=== PATIENT | female | born 1970 | race Caucasian/White ===

== ENCOUNTER 2017-02-09 20:34 | Emergency (ER) | payer OTHER, MEDICARE ==
[~2017-02-09 20:34] MED LIST: ALAVERT10 M1 PO; ALAVERT10 MG PO; CYMBALTA 20MG20 MG PO; DEPAKOTE 250MG250 MG PO; EPI-PEN1 MG/ML MR; FAMOTIDINE40 MG PO; FIORICET 325 MG1 TA1 PO; IMITREX100 MG PO; KEPPRA1000 MG PO; KEPPRA250 MG PO; LEXAPRO10 MG PO; LEXAPRO20 MG PO; LYRICA50 MG PO; NORCO 325 MG-7.1 TA1 PO; PREDNISONE10 M1 PO; SINGULAIR10 MG PO
[2017-02-09] MEDS ORDERED: DEPAKOTE DR500 MG PO (20:48)
[2017-02-09 21:26] VITALS: BP 154/89
== END 2017-02-09 21:26 | disposition home or self-care (01) ==
LOC: ED 20:34
DX: S51.811A Laceration without foreign body of right forearm, initial encounter (principal); W26.0XXA Contact with knife, initial encounter; Y92.000 Kitchen of unspecified non-institutional (private) residence as the place of occurrence of the external cause; Z23 Encounter for immunization; Z88.6 Allergy status to analgesic agent; Z88.1 Allergy status to other antibiotic agents
CPT/HCPCS: 90715; A4550; A4649

== ENCOUNTER → 2019-10-06 | Outpatient (CLI) | payer OTHER, MEDICARE ==
[~2019-10-06] MED LIST changes: +DEPAKOTE DR500 MG PO
[2019-10-06 10:38] LABS: TOTAL PROTEIN 6.8 g/dL (6.4-8.3)
[2019-10-06 10:40] LABS: TOTAL BILIRUBIN 0.2 mg/dL (0.2-1.2)
== END ==
LOC: LAB 10:11
PROVIDERS: Family Medicine
DX: Z13.1 Encounter for screening for diabetes mellitus (principal); Z13.6 Encounter for screening for cardiovascular disorders

== ENCOUNTER 2020-03-21 11:55 | Emergency (ER) | payer OTHER, MEDICARE ==
[2020-03-21] MEDS ORDERED: LEXAPRO 10MG10 MG (12:17)
[2020-03-21 12:49] LABS: EOS # 0.1 (0.04-0.40); EOS % 1.5 % (1.0-5.0); HEMATOCRIT 38.5 % (37.0-47.0); HEMOGLOBIN 11.7 g/dL (12.5-16.0); LYMPH# 2.6 (1.50-4.00); MEAN CELL VOLUME 94 fl (78-100); MEAN CORPUSCULAR HEMOGLOBIN 29 pg (27-31); MEAN CORPUSCULAR HGB CONC 30 g/dL (33-37); MEAN PLATELET VOLUME 9.6 fl (7.4-10.4); MONO # 0.4 (0.20-0.80); PLATELET COUNT 313 K/mm3 (130-400); RED BLOOD COUNT 4.08 M/mm3 (4.10-5.30); RED CELL DISTRIBUTION WIDTH 15.1 % (11.5-14.5); WHITE BLOOD COUNT 8.2 K/mm3 (4.8-10.8)
[2020-03-21 12:59] LABS: POTASSIUM 4.2 mmol/L (3.5-5.1)
[2020-03-21 13:00] LABS: CALCIUM 8.8 mg/dL (8.3-10.5)
[2020-03-21 13:01] LABS: TOTAL PROTEIN 6.5 g/dL (6.4-8.3)
[2020-03-21 13:03] LABS: TOTAL BILIRUBIN 0.2 mg/dL (0.2-1.2)
[2020-03-21] MEDS ORDERED: BACLOFEN5 MG PO (15:19)
[2020-03-21] MEDS ORDERED: PERCOCET 325 MG1 TA2 PO (15:21)
[2020-03-21 15:39] VITALS: BP 145/105
== END 2020-03-21 15:41 | disposition home or self-care (01) ==
LOC: ED 11:55
PROVIDERS: Nurse Practitioner Family
DX: I10 Essential (primary) hypertension (principal); M54.12 Radiculopathy, cervical region; F32.9 Major depressive disorder, single episode, unspecified; Z87.891 Personal history of nicotine dependence; Z32.02 Encounter for pregnancy test, result negative; Z88.1 Allergy status to other antibiotic agents; Z88.8 Allergy status to other drugs, medicaments and biological substances; Z79.899 Other long term (current) drug therapy
CPT/HCPCS: J0595; J1200; J1885; J2360; J2405; J7030

== ENCOUNTER → 2021-03-27 | Outpatient (CLI) | payer OTHER, MEDICARE ==
[~2021-03-27] MED LIST changes: +BACLOFEN5 MG PO; +LEXAPRO 10MG10 MG; +PERCOCET 325 MG1 TA2 PO
[2021-03-27 12:00] LABS: BASO # 0.01 K/mm3 (0.02-0.10); EOS # 0.04 K/mm3 (0.04-0.40); EOS % 0.9 % (1.0-5.0); HEMATOCRIT 44.1 % (37.0-47.0); HEMOGLOBIN 13.7 g/dL (12.5-16.0); LYMPH# 1.45 K/mm3 (1.50-4.00); MEAN CELL VOLUME 98 fl (78-100); MEAN CORPUSCULAR HEMOGLOBIN 30 pg (27-31); MEAN CORPUSCULAR HGB CONC 31 g/dL (33-37); MEAN PLATELET VOLUME 9.2 fl (7.4-10.4); PLATELET COUNT 265 K/mm3 (130-400); RED BLOOD COUNT 4.51 M/mm3 (4.10-5.30); RED CELL DISTRIBUTION WIDTH 13.3 % (11.5-14.5); WHITE BLOOD COUNT 4.6 K/mm3 (4.8-10.8)
[2021-03-27 12:11] LABS: POTASSIUM 3.9 mmol/L (3.5-5.1)
[2021-03-27 12:12] LABS: CALCIUM 8.9 mg/dL (8.3-10.5)
[2021-03-27 12:52] LABS: D-DIMER 0.44 mg/L FEU (0.15-0.50)
[2021-03-27 12:54] LABS: ERYTHROCYTE SEDIMENTATION RATE 5 mm/hr (0-20)
== END ==
LOC: LAB 11:50
PROVIDERS: Family Medicine
DX: J06.9 Acute upper respiratory infection, unspecified (principal)

== ENCOUNTER 2021-07-31 05:02 | Emergency (ER) | payer OTHER, MEDICARE ==
[~2021-07-31] VITALS: Ht 170.2 cm; Wt 69.1 kg
[2021-07-31] MEDS ORDERED: ZESTRIL10 M1 PO (05:19)
[2021-07-31] MEDS ORDERED: VITAMIN C500 M7 PO (05:19)
[2021-07-31] MEDS ORDERED: LEXAPRO20 M1 PO (05:19)
[2021-07-31] MEDS ORDERED: IMITREX100 M1 PO (05:20)
[2021-07-31] MEDS ORDERED: WOMEN'S DAILY F1 TAB PO (05:29)
[2021-07-31] MEDS ORDERED: NORCO 325 MG-51 TA1 PO (06:10)
[2021-07-31 06:25] VITALS: BP 121/79
== END 2021-07-31 06:25 | disposition home or self-care (01) ==
LOC: ED 05:02
DX: M25.561 Pain in right knee (principal); Z28.310 Unvaccinated for COVID-19; W01.0XXA Fall on same level from slipping, tripping and stumbling without subsequent striking against object, initial encounter
CPT/HCPCS: L1830

== ENCOUNTER → 2021-08-06 | Outpatient (CLI) | payer OTHER, MEDICARE ==
[~2021-08-06] MED LIST changes: +IMITREX100 M1 PO; +LEXAPRO20 M1 PO; +NORCO 325 MG-51 TA1 PO; +VITAMIN C500 M7 PO; +WOMEN'S DAILY F1 TAB PO; +ZESTRIL10 M1 PO
== END ==
LOC: RAD 10:57
DX: M25.561 Pain in right knee (principal); M25.461 Effusion, right knee

== ENCOUNTER 2021-10-15 12:59 | Outpatient (RCR) | payer OTHER, MEDICARE | END 2021-11-05 | disposition home or self-care (01) | LOC: PT | DX: M25.561 Pain in right knee (principal) ==

== ENCOUNTER 2023-09-13 15:26 | Emergency (ER) | payer OTHER, MEDICARE ==
[~2023-09-13] VITALS: Ht 170.2 cm; Wt 74.2 kg
[~2023-09-13 15:26] MED LIST changes: +CYCLOBENZAPRINE10 M1 PO; +TRAMADOL 50 MG TAB PO
[2023-09-13] MEDS ORDERED: NS 1,000 ML IV SCH (16:15)
[2023-09-13] MEDS ORDERED: Ketorolac 30 MG/ML VIAL IV ONE (16:15)
[2023-09-13] MEDS ORDERED: Ondansetron 4 MG/2 ML VIAL IV ONE ×2 (16:15→17:00)
[2023-09-13 16:32] LABS: BASO # 0.03 K/mm3 (0.02-0.10); EOS # 0.14 K/mm3 (0.04-0.40); EOS % 1.9 % (1.0-5.0); LYMPH# 2.06 K/mm3 (1.50-4.00); MEAN CELL VOLUME 95 fl (78-100); MEAN CORPUSCULAR HEMOGLOBIN 30 pg (27-31); MEAN CORPUSCULAR HGB CONC 32 g/dL (33-37); MONO # 0.35 K/mm3 (0.20-0.80); NEU # 4.63 K/mm3 (1.40-6.50); PLATELET COUNT 305 K/mm3 (130-400); RED BLOOD COUNT 4.33 M/mm3 (4.10-5.30); RED CELL DISTRIBUTION WIDTH 13.1 % (11.5-14.5); WHITE BLOOD COUNT 7.2 K/mm3 (4.8-10.8)
[2023-09-13 16:40] LABS: CALCIUM 9.1 mg/dL (8.3-10.5)
[2023-09-13 16:41] LABS: TOTAL PROTEIN 6.1 g/dL (6.4-8.3)
[2023-09-13 16:43] LABS: TOTAL BILIRUBIN 0.2 mg/dL (0.2-1.2)
[2023-09-13] MEDS ORDERED: SUMAtriptan 6 MG/0.5 ML VIAL SQ ONE (17:00)
[2023-09-13] MEDS ORDERED: SUMATRIPTAN SU100 MG PO (17:52)
[2023-09-13] MEDS ORDERED: diphenhydrAMINE 50 MG/ML 1 ML VIAL IV\\IM ONE (19:15)
[2023-09-13 19:25] VITALS: BP 121/74
== END 2023-09-13 19:25 | disposition home or self-care (01) ==
LOC: ED 15:26
PROVIDERS: Physician Assistant
DX: G43.909 Migraine, unspecified, not intractable, without status migrainosus (principal); Z91.148 Patient's other noncompliance with medication regimen for other reason
CPT/HCPCS: J0780; J1200; J1885; J2405; J3030; J7030